=== PATIENT | male | born 1955 | race African-American/Black ===

== ENCOUNTER 2016-06-09 15:40 | Observation (INO) | payer OTHER ==
[~2016-06-09] VITALS: Ht 177.8 cm; Wt 100.0 kg
[~2016-06-09 15:40] MED LIST: AMLO5TAB96 PO; BACT800T5 PO; CARV3.125 PO; LOTE20TA PO
[2016-06-09 15:46] VITALS: BP 152/90; PULSE 87; RESP 18; TEMP 97.8; O2SAT 96
[2016-06-09] MEDS ORDERED: CARV3.125 PO (16:23)
[2016-06-09] MEDS ORDERED: AMLO5 PO (16:23)
[2016-06-09] MEDS ORDERED: LISI-515 PO (16:23)
--- NOTE | 2016-06-09 16:25 | PD ---
HPI Chief Complaint: Chest Pain Time Seen by Provider: 16:24 Travel History International Travel<30 days: No Contact w/Intl Traveler<30days: No Traveled to known affect area: No History of Present Illness HPI 61-year-old male with a history of hypertension presents to the emergency department for evaluation of history of midsternal chest pain. Patient states he has had constant midsternal chest pain since earlier this morning. Describes it as a dull pressure. States that the pain is aggravated with exertion and improved with rest. Denies any associated shortness of breath, lightheadedness, dizziness, nausea, vomiting, diaphoresis. Denies any fever, chills, cough or cold symptoms, swelling of the extremities, abdominal pain. Denies any history of heart disease or MD. States he had a stress test about 5 years ago that was normal. Denies any family history of heart disease. Denies any smoking history. No other complaints. 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 PFSH Past Medical History Cancer: Yes (PROSTATE CA) Cardiovascular Problems: Yes (HTN) Diabetes: No Diminished Hearing: No Endocrine: No Gastrointestinal Disorders: Yes (DIARRHEA) Genitourinary: Yes (PROSTATE CA) Hepatitis: No Hiatal Hernia: No Hypertension: Yes Immune Disorder: No Musculoskeletal: Yes (ARTHRITIS) Neurologic: No Psychiatric: No Reproductive: No Respiratory: No Thyroid Disease: No Tetanus Vaccination: > 5 Years Influenza Vaccination: No Past Surgical History Genitourinary Surgery: Yes (PROSTATE) Joint Replacement: No Pacemaker: No Prostatectomy: Yes Social History Alcohol Use: No Tobacco Use: No Substance Use: No Allergies-Medications (Allergen,Severity, Reaction): Coded Allergies: No Known Allergies (Unverified , 06/09/16) Reported Meds & Prescriptions Reported Meds & Active Scripts Active Reported Coreg (Carvedilol) 3.125 Mg Tab 3.125 Mg PO BID Lisinopril 20 Mg Tab 20 Mg PO DAILY Norvasc (Amlodipine Besylate) 5 Mg Tab 10 Mg PO DAILY Review of Systems Except as stated in HPI: all other systems reviewed are Neg Physical Exam Narrative GENERAL: Well-nourished and well-developed pleasant male patient in no acute distress who is nontoxic appearing. SKIN: Warm and dry. HEAD: Normocephalic and atraumatic. EYES: No injection, drainage, or hyphema noted. PERRLA. EOMI. ENT: No nasal drainage noted. Oropharynx is clear. NECK: Supple and the trachea is midline. CARDIOVASCULAR: Regular rate and rhythm. RESPIRATORY: Breath sounds are equal bilaterally with no accessory muscle use, wheezing, rhonchi, or crackles. GASTROINTESTINAL: Abdomen is soft, non-tender, and nondistended. MUSCULOSKELETAL: No obvious deformities, swelling, cyanosis, or ecchymosis is present throughout the upper and lower extremities. Patient has full range of motion without any signs of neurovascular compromise. NEUROLOGICAL: Awake, alert, and oriented. Normal speech and gait. Cranial nerves are grossly intact. Data Data Last Documented VS Vital Signs Date Time Temp Pulse Resp B/P Pulse Ox O2 Delivery O2 Flow Rate FiO2 06/09/16 15:46 97.8 87 18 152/90 96 Orders Electrocardiogram (06/09/16 ) Ckmb (Isoenzyme) Profile (06/09/16 16:23) Complete Blood Count With Diff (06/09/16 16:23) Comprehensive Metabolic Panel (06/09/16 16:23) Prothrombin Time / Inr (Pt) (06/09/16 16:23) Act Partial Throm Time (Ptt) (06/09/16 16:23) Troponin I (06/09/16 16:23) Chest, Single Ap (06/09/16 16:23) Ecg Monitoring (06/09/16 16:23) Bilateral Bp Monitoring (06/09/16 16:23) Iv Access Insert/Monitor (06/09/16 16:23) Oximetry (06/09/16 16:23) Aspirin Chew (Aspirin Chew) (06/09/16 16:30) Sodium Chloride 0.9% Flush (Ns Flush) (06/09/16 16:30) CKMB (06/09/16 16:35) CKMB% (06/09/16 16:35) Admit Order (Ed Use Only) (06/09/16 18:13) Activity Bed Rest With Brp (06/09/16 18:13) Vital Signs (Adult) Q4H (06/09/16 18:13) Cardiac Rhythm .As Directed (06/09/16 18:13) ^ Notify Dr: Other .PRN (06/09/16 18:13) ^ Notify Dr. Parameters (06/09/16 18:13) Resp Oxygen Nasal Cannula (06/09/16 ) Diet Npo (06/10/16 Breakfast) Diet Heart Healthy (06/09/16 Dinner) Ckmb (Isoenzyme) Profile (06/09/16 19:35) Ckmb (Isoenzyme) Profile (06/09/16 22:35) Troponin I (06/09/16 19:35) Troponin I (06/09/16 22:35) Electrocardiogram (06/09/16 18:13) Electrocardiogram (06/09/16 21:13) ^ Obtain (06/09/16 18:13) Sodium Chlor 0.9% 1000 Ml Inj (Ns 1000 M (06/09/16 18:13) Sodium Chloride 0.9% Flush (Ns Flush) (06/09/16 18:15) Acetaminophen (Tylenol) (06/09/16 18:15) Premium Note Interest Calculator Clerk / Telemetry ANDRE.Q8H (06/09/16 18:13) Labs Laboratory Tests Test 06/09/16 16:35 White Blood Count 8.5 TH/MM3 Red Blood Count 4.96 MIL/MM3 Hemoglobin 13.4 GM/DL Hematocrit 40.5 % Mean Corpuscular Volume 81.7 FL Mean Corpuscular Hemoglobin 27.0 PG Mean Corpuscular Hemoglobin 33.0 % Concent Red Cell Distribution Width 14.7 % Platelet Count 232 TH/MM3 Mean Platelet Volume 9.2 FL Neutrophils (%) (Auto) 78.4 % Lymphocytes (%) (Auto) 13.0 % Monocytes (%) (Auto) 6.3 % Eosinophils (%) (Auto) 1.4 % Basophils (%) (Auto) 0.9 % Neutrophils # (Auto) 6.7 TH/MM3 Lymphocytes # (Auto) 1.1 TH/MM3 Monocytes # (Auto) 0.5 TH/MM3 Eosinophils # (Auto) 0.1 TH/MM3 Basophils # (Auto) 0.1 TH/MM3 CBC Comment DIFF FINAL Differential Comment Prothrombin Time 11.3 SEC Prothromb Time International 1.0 RATIO Ratio Activated Partial 35.1 SEC Thromboplast Time Sodium Level 142 MEQ/L Potassium Level 4.0 MEQ/L Chloride Level 108 MEQ/L Carbon Dioxide Level 25.6 MEQ/L Anion Gap 8 MEQ/L Blood Urea Nitrogen 19 MG/DL Creatinine 1.26 MG/DL Estimat Glomerular Filtration 70 ML/MIN Rate Random Glucose 92 MG/DL Calcium Level 8.6 MG/DL Total Bilirubin 0.3 MG/DL Aspartate Amino Transf 24 U/L (AST/SGOT) Alanine Aminotransferase 28 U/L (ALT/SGPT) Alkaline Phosphatase 89 U/L Total Creatine Kinase 294 U/L Creatine Kinase MB 2.2 NG/ML Troponin I LESS THAN 0.02 NG/ML Total Protein 7.7 GM/DL Albumin 3.9 GM/DL MDM Medical Decision Making Medical Screen Exam Complete: Yes Emergency Medical Condition: Yes Differential Diagnosis ACS versus pleurisy versus chest wall pain versus pleural effusion Narrative Course 61-year-old male presents to the emergency department for evaluation of chest pain that began this morning. Patient is afebrile, vital signs are stable. Physical examination is unremarkable. IV access is obtained, labs were drawn and sent. Patient is placed on Cardiac telemetry and pulse oximetry monitoring. Patient is administered aspirin. EKG shows sinus tachycardia with a ventricular rate of 102 bpm with lateral T-wave inversions when compared to previous EKG done in 2012, no acute ST elevations. CBC is unremarkable. CMP is unremarkable. Troponin is less than 0.02. Coags are unremarkable. Chest x-ray is negative for any acute abnormalities. Patient reports improvement of pain with aspirin. His urine stable without complaint. The emergency department. Patient will be admitted to chest pain center for repeat cardiac enzymes, EKGs and possible stress testing. Patient verbalizes understanding and agreement with treatment plan. I discussed the case with my attending physician Dr. Stubbs who is aware of the patients history, physical examination findings, and treatment plan. Diagnosis Primary Impression: Chest pain Qualified Code: R07.9 - Chest pain, unspecified type Admitting Information Admitting Physician Requests: Sujey Aguirre Jun 09, 2016 16:24
[2016-06-09] MEDS ORDERED: SODIUM CHLORIDE 0.9% FLUSH 10 ML FLUSH IVF PRN (16:30)
[2016-06-09] MEDS ORDERED: ASPIRIN 81 MG CHEW TAB PO ONE (16:30)
[2016-06-09 16:47] LABS: AUTOMATED NEUTROPHIL # 6.7 TH/MM3 (1.8-7.7); BASOPHIL # 0.1 TH/MM3 (0-0.2); BASOPHIL % 0.9 % (0.0-2.0); EOSINOPHIL # 0.1 TH/MM3 (0-0.4); EOSINOPHIL % 1.4 % (0.0-4.0); HEMATOCRIT 40.5 % (39.0-51.0); HEMO FLAGS DIFF FINAL; LYMPHOCYTE # 1.1 TH/MM3 (1.0-4.8); MEAN CELL VOLUME 81.7 FL (80.0-100.0); MONO % 6.3 % (0.0-8.0); NEUT % 78.4 % (16.0-70.0); PLATELET COUNT 232 TH/MM3 (150-450); RED BLOOD COUNT 4.96 MIL/MM3 (4.50-5.90); RED CELL DISTRIBUTION WIDTH 14.7 % (11.6-17.2); WHITE BLOOD COUNT 8.5 TH/MM3 (4.0-11.0)
--- NOTE | 2016-06-09 16:50 | RADRPT ---
EXAM DATE/TIME: 06/09/2016 16:34 [facility] COMPARISON: No previous studies available for comparison. INDICATIONS : Chest pain x 1 day. MEDICAL HISTORY : None. SURGICAL HISTORY : None. ENCOUNTER: Initial ACUITY: 1 day PAIN SCORE: 4/10 LOCATION: Bilateral chest FINDINGS: Single AP view of the chest. The lungs are clear. Cardiomediastinal silhouette within normal limits. No evidence of pleural effusion or pneumothorax. CONCLUSION: No acute cardiopulmonary disease identified. Raf Ellison MD on June 09, 2016 at 16:47 Board Certified Radiologist. This report was verified electronically.
[2016-06-09 17:06] LABS: APTT (PATIENT) 35.1 SEC (24.3-30.1); PROTHROMBIN TIME - PATIENT 11.3 SEC (9.8-11.6)
[2016-06-09 17:51] LABS: ALKALINE PHOSPHATASE 89 U/L (45-117); ALT (GPT) 28 U/L (12-78); ANION GAP 8 MEQ/L (5-15); AST (GOT) 24 U/L (15-37); BICARBONATE 25.6 MEQ/L (21.0-32.0); BLOOD UREA NITROGEN 19 MG/DL (7-18); CHLORIDE 108 MEQ/L (98-107); CREATINE KINASE 294 U/L (39-308); GLOMERULAR FILTRATION RATE 70 ML/MIN (>89); SODIUM (NA) 142 MEQ/L (136-145); TOTAL BILIRUBIN ADULT 0.3 MG/DL (0.2-1.0)
[2016-06-09 18:04] LABS: CKMB 2.2 NG/ML (0.5-3.6)
[2016-06-09] MEDS ORDERED: ACETAMINOPHEN 500 MG CPLT PO PRN (18:15)
[2016-06-09] MEDS ORDERED: SODIUM CHLORIDE 0.9% FLUSH 10 ML FLUSH IV FLUSH PRN (18:15)
[2016-06-09] MEDS: SODIUM CHLOR 0.9% 1000 ML INJ 1,000 ML IV SCH (18:44)
--- NOTE | 2016-06-09 18:46 | PD ---
Data Data Last Documented VS Vital Signs Date Time Temp Pulse Resp B/P Pulse Ox O2 Delivery O2 Flow Rate FiO2 06/09/16 15:46 97.8 87 18 152/90 96 Orders Electrocardiogram (06/09/16 ) Ckmb (Isoenzyme) Profile (06/09/16 16:23) Complete Blood Count With Diff (06/09/16 16:23) Comprehensive Metabolic Panel (06/09/16 16:23) Prothrombin Time / Inr (Pt) (06/09/16 16:23) Act Partial Throm Time (Ptt) (06/09/16 16:23) Troponin I (06/09/16 16:23) Chest, Single Ap (06/09/16 16:23) Ecg Monitoring (06/09/16 16:23) Bilateral Bp Monitoring (06/09/16 16:23) Iv Access Insert/Monitor (06/09/16 16:23) Oximetry (06/09/16 16:23) Aspirin Chew (Aspirin Chew) (06/09/16 16:30) Sodium Chloride 0.9% Flush (Ns Flush) (06/09/16 16:30) CKMB (06/09/16 16:35) CKMB% (06/09/16 16:35) Admit Order (Ed Use Only) (06/09/16 18:13) Activity Bed Rest With Brp (06/09/16 18:13) Vital Signs (Adult) Q4H (06/09/16 18:13) Cardiac Rhythm .As Directed (06/09/16 18:13) ^ Notify Dr: Other .PRN (06/09/16 18:13) ^ Notify Dr. Parameters (06/09/16 18:13) Resp Oxygen Nasal Cannula (06/09/16 ) Diet Npo (06/10/16 Breakfast) Diet Heart Healthy (06/09/16 Dinner) Ckmb (Isoenzyme) Profile (06/09/16 19:35) Ckmb (Isoenzyme) Profile (06/09/16 22:35) Troponin I (06/09/16 19:35) Troponin I (06/09/16 22:35) Electrocardiogram (06/09/16 18:13) Electrocardiogram (06/09/16 21:13) ^ Obtain (06/09/16 18:13) Sodium Chlor 0.9% 1000 Ml Inj (Ns 1000 M (06/09/16 18:13) Sodium Chloride 0.9% Flush (Ns Flush) (06/09/16 18:15) Acetaminophen (Tylenol) (06/09/16 18:15) Tow Mate / Telemetry ANDRE.Q8H (06/09/16 18:13) Labs Laboratory Tests Test 06/09/16 16:35 White Blood Count 8.5 TH/MM3 Red Blood Count 4.96 MIL/MM3 Hemoglobin 13.4 GM/DL Hematocrit 40.5 % Mean Corpuscular Volume 81.7 FL Mean Corpuscular Hemoglobin 27.0 PG Mean Corpuscular Hemoglobin 33.0 % Concent Red Cell Distribution Width 14.7 % Platelet Count 232 TH/MM3 Mean Platelet Volume 9.2 FL Neutrophils (%) (Auto) 78.4 % Lymphocytes (%) (Auto) 13.0 % Monocytes (%) (Auto) 6.3 % Eosinophils (%) (Auto) 1.4 % Basophils (%) (Auto) 0.9 % Neutrophils # (Auto) 6.7 TH/MM3 Lymphocytes # (Auto) 1.1 TH/MM3 Monocytes # (Auto) 0.5 TH/MM3 Eosinophils # (Auto) 0.1 TH/MM3 Basophils # (Auto) 0.1 TH/MM3 CBC Comment DIFF FINAL Differential Comment Prothrombin Time 11.3 SEC Prothromb Time International 1.0 RATIO Ratio Activated Partial 35.1 SEC Thromboplast Time Sodium Level 142 MEQ/L Potassium Level 4.0 MEQ/L Chloride Level 108 MEQ/L Carbon Dioxide Level 25.6 MEQ/L Anion Gap 8 MEQ/L Blood Urea Nitrogen 19 MG/DL Creatinine 1.26 MG/DL Estimat Glomerular Filtration 70 ML/MIN Rate Random Glucose 92 MG/DL Calcium Level 8.6 MG/DL Total Bilirubin 0.3 MG/DL Aspartate Amino Transf 24 U/L (AST/SGOT) Alanine Aminotransferase 28 U/L (ALT/SGPT) Alkaline Phosphatase 89 U/L Total Creatine Kinase 294 U/L Creatine Kinase MB 2.2 NG/ML Troponin I LESS THAN 0.02 NG/ML Total Protein 7.7 GM/DL Albumin 3.9 GM/DL MDM Supervised Visit with NA: Yes Narrative Course The history, exam, and medical decision-making in the associated mid-level provider note were completed with my assistance. I reviewed and agree with the findings presented. I attest that I had a [id number] encounter with the patient on the same day, and personally performed and documented my assessment and findings in the medical record. *My assessment and Findings: 59-year-old male with intermittent chest pain today, somewhat worse with exertion, moderately suggestive of myocardial ischemia. Risk factors include age and hypertension. He has had gastritis in the past. EKG shows a a few nonspecific ST changes, change from previous. He is moderate risk for ACS. Recommend admission to chest pain Center for further evaluation. No evidence of PE. No evidence of dissection. Diagnosis Primary Impression: Chest pain Qualified Code: R07.9 - Chest pain, unspecified type Paul Stubbs MD Jun 09, 2016 18:46
[2016-06-09 19:00] VITALS: BP 141/79; PULSE 90; RESP 18; O2SAT 98
[2016-06-09 20:09] LABS: CREATINE KINASE 239 U/L (39-308)
[2016-06-09 20:22] LABS: CKMB 1.7 NG/ML (0.5-3.6)
[2016-06-09 21:51] VITALS: BP 137/90; PULSE 100; RESP 20; TEMP 98.7; O2SAT 96
--- NOTE | 2016-06-09 22:21 | EKG ---
Date Performed: 06/09/2016 Time Performed: 19:34:03 PTAGE: 61 years EKG: Sinus rhythm VOLTAGE CRITERIA FOR LVH NONSPECIFIC T-WAVE ABNORMALITY ABNORMAL ECG PREVIOUS TRACING : 06/09/2016 15.58 Compared to prior tracing no significant change DOCTOR: Daniele Saeed Interpretating Date/Time 06/09/2016 22:19:16
--- NOTE | 2016-06-09 22:27 | EKG ---
Date Performed: 06/09/2016 Time Performed: 15:58:34 PTAGE: 61 years EKG: SINUS TACHYCARDIA MODERATE VOLTAGE CRITERIA FOR LVH, CONSIDER NORMAL VARIANT NONSPECIFIC T- WAVE ABNORMALITY ABNORMAL ECG Compared to prior tracing no significant change DOCTOR: Daniele Saeed Interpretating Date/Time 06/09/2016 22:26:39
[2016-06-09 23:01] LABS: CREATINE KINASE 237 U/L (39-308)
[2016-06-09 23:14] LABS: CKMB 1.7 NG/ML (0.5-3.6)
[2016-06-10 00:18] VITALS: PULSE 87
[2016-06-10 00:45] VITALS: BP 113/65; PULSE 85; RESP 20; TEMP 97.6; O2SAT 96
[2016-06-10 03:26] VITALS: BP 112/68; PULSE 81; RESP 20; TEMP 98; O2SAT 96
[2016-06-10] MEDS: SODIUM CHLOR 0.9% 1000 ML INJ 1,000 ML IV SCH ×2 (04:13→13:51)
[2016-06-10 07:55] VITALS: BP 117/68; PULSE 76; RESP 16; TEMP 98.1; O2SAT 95
[2016-06-10 08:00] VITALS: PULSE 74
--- NOTE | 2016-06-10 10:40 | HHI.HP ---
[facility] Primary Care Physician Iftikhar Drake MD Chief Complaint Chest pain History of Present Illness This is a 61-year-old male with history of hypertension that presents with a complaint of developing a discomfort in the center of his chest chest and morning. As a burning type discomfort. It did not radiate. The intensity seem to wax and wane however the discomfort persisted for 8-9 hours. He had no associated shortness breath nausea or diaphoresis. He found since nothing help or improve it but states that aspirin in the nurturer did seem to help. Denies history of CAD. Denies recent illnesses. Denies fevers or chills. Review of Systems General: Patient denies fevers, chills recent, and recent travel HEENT: Patient denies headache, sore throat, difficulty swallowing. Cardiovascular: Has the chest discomfort as mentioned above. Denies sensation of heart beating rapidly or irregularly. No syncope. Denies diaphoresis. Respiratory: Denies shortness of breath or inspirational chest discomfort. Denies coughing wheezing or hemoptysis. GI: Patient denies nausea, vomiting, diarrhea, abdominal pain, bloody stools. Musculoskeletal: Patient denies joint pain or edema. Denies calf pain or edema. Neurovascular: Patient denies numbness, tingling, weakness in extremities. Denies headache. Endocrine: Denies polyuria and polydipsia. Hematologic: Denies easy bruising. Skin: Denies rash or itching. Past Family Social History Allergies: Coded Allergies: No Known Allergies (Unverified , 06/09/16) Past Medical History Hypertension. Denies hyperlipidemia, diabetes, and known CAD. Past Surgical History Prostate surgery. Reported Medications Reported Meds & Active Scripts Active Reported Coreg (Carvedilol) 3.125 Mg Tab 3.125 Mg PO BID Lisinopril 20 Mg Tab 20 Mg PO DAILY Norvasc (Amlodipine Besylate) 5 Mg Tab 10 Mg PO DAILY Active Ordered Medications Current Medications Medications (Trade) Dose Ordered Sig/Marlena Route Start Time Stop Time Status Last Admin Sodium Chloride 2 ml 2 ml UNSCH PRN IVF 06/09/16 16:30 (NS 1000 ml Inj) 1,000 ml @ 100 mls/hr Q10H IV 06/09/16 18:13 06/10/16 04:13 (NS Flush) 2 ml UNSCH PRN IV FLUSH 06/09/16 18:15 (Tylenol) 500 mg Q4H PRN PO 06/09/16 18:15 (Norvasc) 10 mg DAILY PO 06/10/16 11:00 (Prinivil) 20 mg DAILY PO 06/10/16 11:00 Family History Denies family history of CAD. Social History Patient is a nonsmoker. Physical Exam Vital Signs Vital Signs Date Time Temp Pulse Resp B/P Pulse Ox O2 Delivery O2 Flow Rate FiO2 06/10/16 07:55 98.1 76 16 117/68 95 06/10/16 03:26 98.0 81 20 112/68 96 06/10/16 00:45 97.6 85 20 113/65 96 06/10/16 00:18 87 06/09/16 21:51 98.7 100 20 137/90 96 06/09/16 19:00 90 16 98 Nasal Cannula 2 06/09/16 19:00 90 18 141/79 98 Nasal Cannula 2 06/09/16 15:46 97.8 87 18 152/90 96 Physical Exam GENERAL: This is a well-nourished, well-developed patient, in no apparent distress. Patient speaks in clear complete sentences. Patient is pleasant. HEENT: Head is atraumatic and normocephalic. Neck is supple without lymphadenopathy and trachea is midline. No JVD or carotid bruits. CARDIOVASCULAR: Regular rate and rhythm without murmurs, gallops, or rubs. RESPIRATORY: Clear to auscultation. Breath sounds equal bilaterally. No wheezes , rales, or rhonchi. Chest wall is nontender. No use of accessory muscles. GASTROINTESTINAL: Abdomen is nontender, nondistended. Abdomen soft. No obvious pulsatile mass or bruit. No CVA tenderness. Strong femoral pulses bilaterally. Normal bowel sounds in all quadrants. MUSCULOSKELETAL: Patient is moving upper and lower extremities freely. No calf tenderness or edema, no Homans sign. Strong pulses in upper and lower extremities. NEUROLOGICAL: Patient is alert and oriented. Cranial nerves 2-12 are grossly intact. No focal deficits and speech is clear. SKIN: No rash and turgor is normal. Laboratory Laboratory Tests Test 06/09/16 06/09/16 06/09/16 16:35 19:30 22:30 White Blood Count 8.5 Red Blood Count 4.96 Hemoglobin 13.4 Hematocrit 40.5 Mean Corpuscular Volume 81.7 Mean Corpuscular Hemoglobin 27.0 Mean Corpuscular Hemoglobin 33.0 Concent Red Cell Distribution Width 14.7 Platelet Count 232 Mean Platelet Volume 9.2 Neutrophils (%) (Auto) 78.4 Lymphocytes (%) (Auto) 13.0 Monocytes (%) (Auto) 6.3 Eosinophils (%) (Auto) 1.4 Basophils (%) (Auto) 0.9 Neutrophils # (Auto) 6.7 Lymphocytes # (Auto) 1.1 Monocytes # (Auto) 0.5 Eosinophils # (Auto) 0.1 Basophils # (Auto) 0.1 CBC Comment DIFF FINAL Differential Comment Prothrombin Time 11.3 Prothromb Time International 1.0 Ratio Activated Partial 35.1 Thromboplast Time Sodium Level 142 Potassium Level 4.0 Chloride Level 108 Carbon Dioxide Level 25.6 Anion Gap 8 Blood Urea Nitrogen 19 Creatinine 1.26 Estimat Glomerular Filtration 70 Rate Random Glucose 92 Calcium Level 8.6 Total Bilirubin 0.3 Aspartate Amino Transf 24 (AST/SGOT) Alanine Aminotransferase 28 (ALT/SGPT) Alkaline Phosphatase 89 Total Creatine Kinase 294 239 237 Creatine Kinase MB 2.2 1.7 1.7 Troponin I LESS THAN 0.02 LESS THAN 0.02 LESS THAN 0.02 Total Protein 7.7 Albumin 3.9 Result Diagram: 06/09/16 1635 06/09/16 1635 Imaging Last 24 hours Impressions Chest X-Ray 06/09/16 1623 Signed Impressions: Service Date/Time: Thursday, June 09, 2016 16:34 - CONCLUSION: No acute cardiopulmonary disease identified. Raf Ellison MD Course EKGs have sinus rhythm with nonspecific lateral ST-T changes. Assessment and Plan Assessment and Plan * Chest pain: Patient had serial cardiac enzymes and EKGs for ruling out purposes. He has been evaluated by Dr. Wayen Tineo of cardiology in the chest pain center and will undergo a nuclear ETT. Likely patient will be discharged home if the stress test were to be nonischemic. * Hypertension: Continue current medications. Patient is stable at this time. He is agreeable to this plan. Zurdo Sheridan Jun 10, 2016 10:40
[2016-06-10] MEDS ORDERED: LISINOPRIL 20 MG TAB PO SCH (11:00)
--- NOTE | 2016-06-10 13:32 | RADRPT ---
EXAM DATE/TIME: 06/10/2016 11:03 [facility] COMPARISON: No previous studies available for comparison. INDICATIONS : Midsternal chest pain without radiation. Angina DOSE: 35 mCi Tc99m Myoview at stress 10.9 mCi Tc99m Myoview at rest REST HEART RATE: 94 BPM TARGET HEART RATE: 134 BPM MAX HEART RATE: 141 BPM REST BLOOD PRESSURE: 128/86 mmHg MAX BLOOD PRESSURE: 128/86 mmHg EJECTION FRACTION: > 70% MEDICAL HISTORY : Hypertension. Carcinoma, prostate. SURGICAL HISTORY : Prostatectomy. ENCOUNTER: Initial ACUITY: 1 day PAIN SCALE: 6/10 LOCATION: Midsternal chest TECHNIQUE: The patient underwent upright treadmill exercise in the chest pain center. Continuous ECG tracing wa s monitored during stress. Gated SPECT imaging was performed after stress, and conventional SPECT im aging was performed at rest. The examination was performed on a SPECT/CT scanner, both attenuation-c orrected and non-corrected datasets were reviewed. FINDINGS: The best perfused myocardium is the anterior wall. There is minimal redistribution in the high septum involving the moderate amount of myocardium. Ther e is normal wall motion across this region. CONCLUSION: Minimal apparent stress-induced ischemia high septum as described above with normal wall motion. Thi s is of borderline significance. RISK CATEGORY: Low (<1% Annual Mortality Rate) Kit Wong MD FACR on June 10, 2016 at 13:28 Board Certified Radiologist. This report was verified electronically.
--- NOTE | 2016-06-10 13:38 | EKG ---
Date Performed: 06/09/2016 Time Performed: 22:42:49 PTAGE: 61 years EKG: Sinus rhythm BORDERLINE LEFT AXIS DEVIATION VOLTAGE CRITERIA FOR LVH MODERATE T-WAVE ABNORMALITY PREVIOUS TRACING : 06/09/2016 19.34 Since previous tracing, no significant change noted DOCTOR: Wayne Tineo Interpretating Date/Time 06/10/2016 13:37:06
--- NOTE | 2016-06-10 13:50 | TR ---
Date Performed: 06/10/2016 Time Performed: 11:46:16 DOCTOR: Wayne Tineo DRUG LIST: CLINICAL HISTORY: REASON FOR TEST: REASON FOR ENDING: OBSERVATION: CONCLUSION: NUC ETT TATYANA ETT. NO CP. MILD SOB.Maximum LA=366 % Max HR Achieved=89.0% Maximum BP =142/90 Total Exercise Time=6:01 COMMENTS: Patient exercised using the Tatyana protocol. No electrocardiographic changes were seen to suggest ischemia. Hemodynamic response to exercise was normal. No significant arrhythmia was prese nt.
--- NOTE | 2016-06-10 13:57 | HHI.DCPOC ---
Discharge Care Plan Diagnosis: (1) Chest pain (2) Hypertension Goals to Promote Your Health * To prevent worsening of your condition and complications * To maintain your health at the optimal level Directions to Meet Your Goals Take your medications as prescribed Follow your dietary instruction Follow activity as directed Keep your appointments as scheduled Take your immunizations and boosters as scheduled If your symptoms worsen call your PCP, if no PCP go to Urgent Care Center or Emergency Room Smoking is Dangerous to Your Health. Avoid second hand smoke Call the 24-hour hour crisis hotline for domestic abuse at Zurdo Sheridan Jun 10, 2016 13:57
== END 2016-06-10 16:13 | disposition home or self-care (01) ==
LOC: NEPC 15:40 → NEDA 18:18 → NEPFCDU 21:25
PROVIDERS: ADMIT Internal Medicine Interventional Cardiology; ATTEND Internal Medicine Interventional Cardiology
DX: R07.9 Chest pain, unspecified (principal); I10 Essential (primary) hypertension; Z85.46 Personal history of malignant neoplasm of prostate; R19.7 Diarrhea, unspecified; M19.90 Unspecified osteoarthritis, unspecified site; Z79.899 Other long term (current) drug therapy; R94.31 Abnormal electrocardiogram [ECG] [EKG]; R00.0 Tachycardia, unspecified
CPT/HCPCS: 71010; 78452; 80053; 82550; 82552; 84484; 85025; 85610; 85730; 93005; 93017; 99285; A9502; G0378; J7030

== ENCOUNTER → 2016-11-17 | Outpatient (CLI) | payer OTHER ==
[~2016-11-17] MED LIST changes: +AMLO5 PO; -AMLO5TAB96 PO; -BACT800T5 PO; +LISI-515 PO; -LOTE20TA PO
[2016-11-17 12:33] LABS: AUTOMATED NEUTROPHIL # 5.4 TH/MM3 (1.8-7.7); BASOPHIL % 0.6 % (0.0-2.0); EOSINOPHIL # 0.1 TH/MM3 (0-0.4); EOSINOPHIL % 1.8 % (0.0-4.0); HEMATOCRIT 42.9 % (39.0-51.0); HEMO FLAGS DIFF FINAL; LYMPH % 18.8 % (9.0-44.0); LYMPHOCYTE # 1.4 TH/MM3 (1.0-4.8); MEAN CELL VOLUME 82.3 FL (80.0-100.0); MEAN CORPUSCULAR HEMOGLOBIN 27.2 PG (27.0-34.0); MEAN CORPUSCULAR HGB CONC 33.1 % (32.0-36.0); MONO % 6.3 % (0.0-8.0); NEUT % 72.5 % (16.0-70.0); PLATELET COUNT 221 TH/MM3 (150-450); RED BLOOD COUNT 5.21 MIL/MM3 (4.50-5.90); RED CELL DISTRIBUTION WIDTH 14.5 % (11.6-17.2); WHITE BLOOD COUNT 7.5 TH/MM3 (4.0-11.0)
[2016-11-17 12:56] LABS: ANION GAP 7 MEQ/L (5-15); AST (GOT) 15 U/L (15-37); BICARBONATE 28.5 MEQ/L (21.0-32.0); BLOOD UREA NITROGEN 20 MG/DL (7-18); CHLORIDE 105 MEQ/L (98-107); GLOMERULAR FILTRATION RATE 78 ML/MIN (>89); GLUCOSE,FASTING 88 MG/DL (74-99); POTASSIUM 4.3 MEQ/L (3.5-5.1); SODIUM (NA) 140 MEQ/L (136-145)
[2016-11-17 12:57] LABS: ALT (GPT) 27 U/L (12-78)
[2016-11-17 13:07] LABS: ALKALINE PHOSPHATASE 97 U/L (45-117); HDL CHOLESTEROL 47.4 MG/DL (40.0-60.0); LDL CHOLESTEROL 114 MG/DL (0-99); TOTAL BILIRUBIN ADULT 0.4 MG/DL (0.2-1.0)
[2016-11-17 13:32] LABS: BLOOD, URINE NEG (NEG); COMMENT (UR) CULT NOT INDICATED; CULTURE IF INDICATED CULT NOT INDICATED; GLUCOSE,URINE NEG (NEG); KETONE, URINE NEG (NEG); MUCUS URINE FEW /lpf (OCC); NITRITE,URINE NEG (NEG); PH, URINE 5.5 (5.0-8.5); URINE COLOR YELLOW (YELLW/STRAW)
[2016-11-17 16:09] LABS: HEMOGLOBIN A1a 1.1 %; HEMOGLOBIN A1b 0.9 %; HEMOGLOBIN Ao 85.3 %; HEMOGLOBIN F 0.9 %; HEMOGLOBIN LA1C 1.8 %; HEMOGLOBIN P3 3.7 %
== END ==
LOC: CLAB 11:43
PROVIDERS: ATTEND Internal Medicine
DX: E78.00 Pure hypercholesterolemia, unspecified (principal); I10 Essential (primary) hypertension; R73.01 Impaired fasting glucose; Z12.5 Encounter for screening for malignant neoplasm of prostate
CPT/HCPCS: 36415; 80053; 80061; 81001; 83036; 84153; 84443; 85025